=== PATIENT | male | born 1990 | race African-American/Black ===

== ENCOUNTER 2016-12-07 14:46 | Emergency (ER) | payer SELFPAY ==
[2016-12-07 14:34] LABS: ASCORBIC ACID (UR NOT ORDER) NEG (NEG); BILIRUBIN, URINE NEGATIVE (NEG); ER URINALYSIS TAT 0 Hrs 12 Mins; KETONE, URINE NEGATIVE (NEG); LEUKOCYTE ESTERASE(NOT OR LARGE (NEG); NITRITE (URINE) NEG (NEG); WBC (NOT ORDERED) (RFLEX) 147 (0-5)
[2016-12-07 16:13] LABS: SOURCE: MALE URINE
[2016-12-07 16:17] LABS: CHLAMYDIA TRACH PCR DETECTED (NOT DETEC); GC PCR DETECTED (NOT DETECT)
== END 2016-12-07 14:59 | disposition home or self-care (01) ==
LOC: ER 14:46
PROVIDERS: Nurse Practitioner
DX: R36.9 Urethral discharge, unspecified (principal); F17.200 Nicotine dependence, unspecified, uncomplicated
CPT/HCPCS: 81001; 87086; 87491; 87591; 96372; 99283; A9270-GY; J0696